=== PATIENT | male | born 1960 | race Caucasian/White ===

== ENCOUNTER 2021-01-26 15:14 | Emergency (ER) | payer OTHER ==
[~2021-01-26] VITALS: Ht 175.3 cm; Wt 79.4 kg
[2021-01-26 15:42] VITALS: BP 172/100
--- NOTE | 2021-01-26 16:20 | NUR ---
Patient ambulated to bed 12 with steady/even gait.
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
--- NOTE | 2021-01-26 17:08 | NUR ---
Dr. Ramey is evaluating patient at bedside.
--- NOTE | 2021-01-26 17:29 | NUR ---
Patient ambulated to restroom for bowel movement; steady/even gait.
[2021-01-26] MEDS ORDERED: ATA25 PO (18:04)
[2021-01-26] MEDS ORDERED: METF-988 PO (18:04)
[2021-01-26] MEDS ORDERED: HYDROXYZINE HYDROCHLORIDE 25 MG TAB PO PRN (18:10)
[2021-01-26 18:15] VITALS: BP 146/89
--- NOTE | 2021-01-26 18:15 | NUR ---
Patient discharged with v/s stable. Written and verbal after care instructions given and explained. Patient alert, oriented and verbalized understanding of instructions. Ambulatory with steady gait. All questions addressed prior to discharge. ID band removed. Patient advised to follow up with PMD. Rx of Metformin, Atarax given. Patient educated on indication of medication including possible reaction and side effects. Opportunity to ask questions provided and answered.
== END 2021-01-26 18:15 | disposition home or self-care (01) ==
LOC: EDSEX 15:14 → MED 15:14
DX: E11.9 Type 2 diabetes mellitus without complications (principal); F41.9 Anxiety disorder, unspecified; Z76.0 Encounter for issue of repeat prescription; Z79.899 Other long term (current) drug therapy
CPT/HCPCS: 99283